=== PATIENT | male | born 1965 | race Caucasian/White ===

== ENCOUNTER → 2016-08-28 | Outpatient (CLI) | payer BC ==
--- NOTE | 2016-08-28 17:36 | CR ---
EXAMINATION: Right wrist HISTORY: Injury COMPARISON: None TECHNIQUE: 3 views FINDINGS: There is no acute osseous abnormality, dislocation, or fracture identified. Bone mineraliz ation and joint spaces are grossly preserved. There is a small well-corticated ossific density poste rior to the wrist, possibly an old triquetral avulsion injury. IMPRESSION: 1. No acute osseous abnormality.
== END ==
LOC: MW.CHFP 14:13
PROVIDERS: ATTEND Physician Assistant
DX: S69.91XA Unspecified injury of right wrist, hand and finger(s), initial encounter (principal); X58.XXXA Exposure to other specified factors, initial encounter
CPT/HCPCS: 73110-26-RT; 73110-RT

== ENCOUNTER 2019-06-28 17:01 | Emergency (ER) | payer OTHER ==
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
--- NOTE | 2019-06-28 18:28 | CT ---
CT cervical spine Technique: Multiple axial sections were obtained from above C1 inferiorly through the bottom of T2. Reconstructed sagittal and coronal images were obtained. Comparison: No prior cervical spine imaging is available. Findings: Vertebral body heights are maintained. Anterior osteophytes are noted throughout the cervical and upper thoracic spine. Vertebral bodies and posterior arches are intact. No fracture is seen. No bony central or bony neural foraminal stenosis is seen. No abnormal subluxation is seen on the reconstructed sagittal images. Ligamentum nuchal calcification is seen. Small bony density is seen off the inferior tip of the occipital bone at the foramen magnum. This is felt to be fairly well corticated and is felt to be old. Mild degenerative change is noted between the dens and anterior arch of C1. Impression: 1. Degenerative change and other findings as noted above. 2. Nothing acute is appreciated on CT study of the cervical spine. Diagnostic code #2 This report was dictated in [place] Standard Time
[2019-06-28 19:17] VITALS: BP 143/87; PULSE 73
== END 2019-06-28 19:36 | disposition home or self-care (01) ==
LOC: MW.ED 17:01
DX: S13.9XXA Sprain of joints and ligaments of unspecified parts of neck, initial encounter (principal); Z88.6 Allergy status to analgesic agent; Z79.899 Other long term (current) drug therapy; V87.7XXA Person injured in collision between other specified motor vehicles (traffic), initial encounter
CPT/HCPCS: 72125; 72125-26; 99284-25